=== PATIENT | female | born 1985 | race Caucasian/White ===

== ENCOUNTER 2018-08-23 08:01 | Day surgery (SDC) | payer OTHER ==
--- NOTE | 2018-08-23 01:19 | GHP ---
[f rep st] PREOP HISTORY AND PHYSICAL DATE OF ADMISSION: 08/23/2018 Patient slated for surgery on 08/23/2018. HISTORY UPON ADMISSION: The patient is a 33-year-old G3, P1, A2, with last menstrual period 06/05/18, who was diagnosed with a blighted ovum on 08/01/2018. The patient wanted to proceed with Cytotec and she underwent several days of Cytotec beginning on August 02. The patient had some bleeding but did not have complete miscarriage. The patient had an ultrasound on August 14 and still had a gestation sac in the fundus without any sign of embryo. The patient is highly anxious about anesthesia for a D and C and wanted try a second course of Cytotec. She proceeded with 2 doses on August 15 and . In response, she passed the gestation sac; however, continued to have bleeding with moderate flow and some clots this weekend. Patient had an ultrasound on August 20, revealing thickened endometrium, approximately 2 cm thickened endometrium with blood flow consistent with small retained products of conception. The patient wanted to pursue definitive management with a D and C to remove small RPOCs. The patient was counseled about risks and benefits of a D and C. The patient has a negative blood type and did receive RhoGAM on 08/15, at which time she had a negative antibody screen. The patient had a GI virus with intense nausea , vomiting, and diarrhea on 08/20. PAST MEDICAL HISTORY: The patient has a history of morphea. The patient diagnosed yrs ago but symptomatically improved after stopping gluten. Patient never diagnosed with eating disorder, but has a history of being hyper attentive to weight changes. PAST SURGICAL HISTORY: The patient had a ruptured left Achilles tendon that was repaired in 2011. Also, a right ulnar nerve and ligament repair in 2011. Patient had tonsillectomy at age 7. PAST OBSTETRIC HISTORY: In August 2009, patient had a viable female by vaginal delivery. In Nov, 2017, the patient had a missed AB at 6wks for which she took Cytotec and had a spontaneous miscarriage. In July 2018, the diagnosis of blighted ovum, now with incomplete Ab and retained POCs. ALLERGIES: The patient has no known drug allergies. CURRENT MEDICATIONS: vitamins. SOCIAL HISTORY: The patient is and lives with her and daughter. The patient is a nonsmoker. No alcohol or drug use. LABORATORY: Lab values reveal a maternal blood type of O negative with negative antibody screen on August 15 and received Rhogam. Patient is rubella immune. PHYSICAL EXAMINATION: GENERAL: At the time of preop, the patient is a well- developed, well-nourished, white female in emotional distress having incomplete ab. VITAL SIGNS: Clinically afebrile. Blood pressure 104/62. Weight declined. LUNGS: Clear to auscultation bilaterally. CARDIOVASCULAR: Regular rate and rhythm. ABDOMEN: Soft and nontender. PELVIC: Exam deferred. Ultrasound revealed RPOCs with an endometrial thickness of 2 cm. Ovaries bilaterally normal. EXTREMITIES: Nontender, no edema. ASSESSMENT: Incomplete status post 2 rounds of cytotec for MAB. The patient now wanting dilation and curettage. Blood type O negative. Patient has received RhoGAM. Patient is extremely anxious about surgery due to historically marked N/V with any anesthetic. Patient reports she was bothered by nausea quite a bit with the epidural and has also been very nauseated with various blocks received with prior surgeries. Patient is advised on ERAS and encouraged to continue oral hydration up to 2 hours prior to surgery and have Gatorade at 2 hours prior. Anesthesia will be advised of the patient's prior reactions. PLAN: We will proceed with a D and C for retained products of conception on 05/2018. Patient will receive preoperative doxycycline. /[id number]/MODL MTDD
[2018-08-23] MEDS ORDERED: DOXYCYCLINE HYCLATE 100 MG CAP/TAB PO ONE (08:56)
[2018-08-23] MEDS ORDERED: LR 1,000 ML IV ONE (08:56)
[2018-08-23] MEDS ORDERED: NALOXONE HCL 0.4 MG/ML INJ IVP PRN (09:08)
[2018-08-23] MEDS ORDERED: PROMETHAZINE HCL 25 MG/ML INJ IVP PRN (09:08)
[2018-08-23] MEDS ORDERED: ONDANSETRON 4 MG/2 ML VIAL IVP PRN (09:08)
[2018-08-23] MEDS ORDERED: ACETAMINOPHEN 500 MG TAB PO ONE (09:08)
[2018-08-23] MEDS ORDERED: ALBUTEROL 3 ML DEYVIAL IH PRN (09:08)
[2018-08-23] MEDS ORDERED: fentaNYL 100 MCG/2 ML INJ IVP PRN (09:08)
[2018-08-23] MEDS ORDERED: ALBUMIN 5% 500 ML BOTTLE IV ONE (09:08)
[2018-08-23] MEDS ORDERED: HYDROCODONE/APAP 5/325 TAB PO PRN (09:08)
--- NOTE | 2018-08-23 09:09 | PDANEPAE ---
ANE History of Present Illness D&C ANE Past Medical History - Cardiovascular History Hx Hypertension: No Hx Arrhythmias: No - Pulmonary History Hx COPD: No Hx Asthma/Reactive Airway Disease: No Hx Sleep Apnea: No Sleep Apnea Screening Result - Last Documented: Negative - Chronic Pain History Chronic Pain: No ANE Review of Systems Review of Systems: - Exercise capacity Exercise capacity: >=4 METS ANE Patient History - Allergies Allergies/Adverse Reactions: No Allergies [NKDA] Allergy (Verified 09/16/16 22:12) - Home Medications Home Medications: Control Pills 03/28/10 [Last Taken Unknown] - NPO status NPO Since - Liquids (Date): 08/23/18 NPO Since - Liquids (Time): 07:00 NPO Since - Solids (Date): 08/22/18 NPO Since - Solids (Time): 18:30 - Smoking Hx Smoking Status: Never smoked ANE Labs/Vital Signs - Vital Signs Blood Pressure: 128/74 Heart Rate: 92 Respiratory Rate: 16 Height: 160.02 cm Weight: 59.874 kg ANE Physical Exam - Airway Neck exam: FROM Mallampati Score: Class 2 Mouth exam: normal dental/mouth exam - Pulmonary Pulmonary: clear to auscultation - Cardiovascular Cardiovascular: regular rate and rhythym - ASA Status ASA Status: I ANE Anesthesia Plan Anesthesia Plan: general endotracheal anesthesia
[2018-08-23] MEDS ORDERED: PROPOFOL/EMULSION 500 MG/50 ML BOTTLE IV ONE ×2 (09:12)
[2018-08-23] MEDS ORDERED: LIDOCAINE 2% 2 ML INJ ONE ×2 (09:14)
[2018-08-23] MEDS ORDERED: ONDANSETRON 4 MG/2 ML VIAL ONE (09:16)
[2018-08-23] MEDS ORDERED: DEXAMETHASONE 4 MG/ML VIAL ONE ×2 (09:16)
[2018-08-23] MEDS ORDERED: KETOROLAC 30 MG/1 ML SDV ONE (09:17)
[2018-08-23] MEDS ORDERED: RANITIDINE 50 MG/2 ML VIAL ONE (09:18)
[2018-08-23] MEDS ORDERED: METOCLOPRAMIDE 10 MG/2 ML VIAL ONE (09:19)
[2018-08-23] MEDS ORDERED: SCOPOLAMINE HYDROBROMIDE 1 MG/3 DAYS PATCH TD ONE (09:20)
--- NOTE | 2018-08-23 10:42 | POSTOPPROG ---
Post Op Note Date of Operation: 08/23/18 Surgeon: Sisi Winter Anesthesiologist: Sharif Díaz MD Anesthesia: IV Sedation, LMA Pre-op Diagnosis: incomplete ab Post-op Diagnosis: same Indication: s/p SAB after 2 rounds of cytotec, but bld/2cm RPOCs on u/s Procedure: D and C Findings: small tissue obtained with 8 suction tip, minimal curretting - no tissue Inf/Abcess present in the surg proc area at time of surgery?: No Depth: Organ Space EBL: Minimal (approx 25cc) Total fluids administered: 550cc Bowel Protocol: Yes Clean Closure Performed: N/A Specimen(s): RPOCs
[2018-08-23 12:18] VITALS: BP 100/74
--- NOTE | 2018-08-23 13:21 | GOP ---
[f rep st] OPERATIVE REPORT DATE OF OPERATION: 08/22/2018 SURGEON: Sisi Winter MD ANESTHESIA: With IV sedation and laryngeal mask anesthesia. ANESTHESIOLOGIST: Sharif Díaz DO PREOPERATIVE DIAGNOSIS: Incomplete AB. POSTOPERATIVE DIAGNOSIS: Incomplete AB. PROCEDURE PERFORMED: Dilation and curettage. FINDINGS: SPECIMENS: Retained products of conception. ESTIMATED BLOOD LOSS: Minimal, approximately 25 cc. INDICATIONS: The patient is a 33-year-old, G3, P1, A2, diagnosed with a missed AB on the ultraso und on August 01. There was lack of development and sac size was inappropriate with gestational timing. The patient underwent Cytotec management and initially had no reaction and repeated a Cytot ec course on August 14 and passed the gestational sac, however, continued to have bleeding. An ultras ound on August 20, revealed a remnant of approximately 2 cm of gestational tissue. The patient then w anted to proceed with a d and C for definitive management. The patient has an a negative blood type and did receive RhoGAM on August 15. The patient has a history of negative anesthesia reactions with significant nausea and vomiting after different orthopedic surgeries. The patient was advised as to the risks and benefits of D and C, and the consent form signed. DESCRIPTION OF PROCEDURE: The patient was taken to the operating room where following satisfactory I V sedation, the patient was placed in dorsal lithotomy position. The patient did have an LMA placed for airway protection. The patient received IV medication to combat nausea production. The patient had SCDs on her lower extremities for DVT prophylaxis and received oral doxycycline prior to the surg bj. The patient had urinated prior to coming to the operating room. The patient's perineum and vag esteban were prepped and the patient draped in usual sterile manner for D and C. A sterile speculum was placed within the vagina and an atraumatic grasper was placed on the anterior lip of the cervix and g entle traction applied. The cervix was easily dilated up to 8.5 Hegar dilator. The #8 suction tip w as used on the suction machine; and with the first pass, a small amount of tissue was obtained. Upon additional pass, there was no more tissue and minimal blood. Abdominal ultrasound was performed daniela or to the surgery starting, which revealed a slightly thickened endometrial lining; and then immediat enriqueta after the suctioning, the uterine lining was checked again and was very thin. Sharp curettage wa s used gently, but there was no retained tissue felt. There was good uterine cry throughout the cavi ty. Direct visualization was used while curettage was performed. The lining appeared thin and the s urgery was completed. One final pass with the suction was performed, and there was no additional tis bradly and minimal blood. The atraumatic grasper was removed, and there was no bleeding from the cervix . The speculum was removed. The patient was cleaned off and taken out of position and then she was awoken and taken to the recovery room in stable condition. The tissue was sent to pathology for insp ection. SERVICE: Obstetrics FLUIDS: Total IV fluids 550 cc. DISPOSITION: The patient tolerated the procedure well and had minimal nausea afterwards. /[id number]/MODL
== END 2018-08-23 12:25 | disposition home or self-care (01) ==
LOC: FSGY 08:01 → FOBOP 12:25
PROVIDERS: ATTEND Obstetrics & Gynecology
PROC: 10D17ZZ Extraction of Products of Conception, Retained, Via Natural or Artificial Opening (ICD-10-PCS; principal; 2018-08-23)
DX: O03.4 Incomplete spontaneous abortion without complication (principal); F41.9 Anxiety disorder, unspecified
CPT/HCPCS: J1100; J1885; J2405; J2704; J2765; J2780; J7613; P9041